=== PATIENT | female | born 1945 | race Hispanic/Latino ===

== ENCOUNTER 2024-11-09 12:59 | Emergency (ER) | payer OTHER ==
[~2024-11-09] VITALS: Ht 149.9 cm; Wt 111.1 kg
--- NOTE | 2024-11-09 15:55 | HMCIMG ---
EXAM: CR right Tibia and fibula, 2 View. CLINICAL HISTORY: fall COMPARISON: None provided. FINDINGS: BONES: No acute fracture or aggressive appearing osseous lesion. JOINTS: No dislocation. SOFT TISSUES: The soft tissues are unremarkable. IMPRESSION: No acute osseous abnormality. /[place]
--- NOTE | 2024-11-09 15:55 | HMCIMG ---
EXAM: CR right Knee, 3 View. CLINICAL HISTORY: fall COMPARISON: None provided. FINDINGS: BONES: No acute fracture or aggressive appearing osseous lesion. JOINTS: There is medial compartment predominant moderate to severe tricompartmental right knee joint osteoarthritis. 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 There is a small suprapatellar knee joint effusion. SOFT TISSUES: The soft tissues are unremarkable. IMPRESSION: 1. No acute osseous injury. 2. Moderate to severe tricompartmental right knee osteoarthritis, predominantly in the medial compartment, with chondrocalcinosis of the lateral meniscus and small suprapatellar joint effusion. /[place]
--- NOTE | 2024-11-09 15:56 | HMCIMG ---
EXAM: CR right ankle, 3 View. CLINICAL HISTORY: fall COMPARISON: None provided. FINDINGS: BONES: No acute fracture or aggressive appearing osseous lesion. Small plantar calcaneal spur. JOINTS: Mild tibiotalar joint osteoarthritis. No dislocation. No radiographic evidence of a joint effusion. SOFT TISSUES: Soft tissue edema more pronounced medially. IMPRESSION: 1. No acute osseous injury. 2. Soft tissue edema, more pronounced medially. /[place]
--- NOTE | 2024-11-09 16:53 | ERN ---
ED Note History of Present Illness Stated Complaint: RIGHT LOWER EXTREMITY PAIN Chief Complaint: Lower Extremity Pain/Injury Time Seen by MD: 13:04 Time Seen by Midlevel: 13:06 Dictation: 79-year-old female coming in via EMS for evaluation of right leg pain. Patient states three days ago she was sitting on the toilet urinating and when she stood up her right leg went out to the right. Patient did not fall to the floor. Did not strike her head. No LOC, no blood thinners. Patient is complaining of pain behind the knee radiating to the lower leg. Patient states he has been slowly walking on it at home. Allergies: Coded Allergies: No Known Allergies (Unverified Allergy, Unknown, 11/09/24) Past Medical History Past Medical History: COPD, Hypertension Surgical History: Hysterectomy Review of System Dictation Constitutional: Negative for fever,chills, and weight loss Eyes: Negative for injury, pain,redness, and discharge ENT: Negative for injury,pain or swelling Cardiovascular: Negative for chest pain, palpitations, and edema Respiratory: Negative for shortness of breath, cough, and wheezing, Abdomen/GI: Negative for abdominal pain, nausea, vomiting, diarrhea, and constipation Back: Negative for injury and pain : Negative for injury, bleeding and discharge MS/Extremity: Right leg pain Skin: Negative for rash, and discoloration Neuro: Negative for headache, weakness, numbness, tingling, and seizure Psych: Negative for suicide ideation, homicidal ideation, and hallucinations Review of Systems: was completed Initial Vital Sign VS Vital Signs Date Time Temp Pulse Resp B/P (MAP) Pulse Ox O2 Delivery O2 Flow Rate FiO2 11/09/24 13:03 97.3 78 19 145/71 95 Nasal Cannula 3.0 11/09/24 15:07 32 Physical Exam Dictation General: awake, alert, NAD Head/Face: Normocephalic, atraumatic Eyes: PERRL, EOMI, vision at baseline ENT: oral cavity clear, TMs clear, no signs of infection Neck: Trachea midline, supple, no nuchal rigidity Cardiovascular: RRR, normal S1/S2, No MRGs, no JVD Respiratory: CTAB, no respiratory distress, No rales or wheezes Abdomen: Soft, non-tender, non-distended, normal bowel sounds, no guarding or rebound. Skin: Warm, dry, normal turgor, no rash MS/Extremity: Pulses equal, no cyanosis, neurovascular intact, FROM, no obvious deformity, no swelling, no redness Neuro: COAx4, GCS 15, strength 5/5, CN 2-12 intact, normal cerebellar exam, normal gait, Psych: Normal behavior, mood, and affect normal ED Course ED Course Orders Procedure Category Date Status Time Knee 3vws Rt RAD 11/09/24 Resulted 13:14 Tibia/Fibula 2vws Rt RAD 11/09/24 Resulted 13:14 Ankle 2vws Rt RAD 11/09/24 Resulted 13:14 Morphine 2mg Syg PHA 11/09/24 Complete (Morphine 2mg Syg) 13:30 Ondansetron 4mg Inj PHA 11/09/24 Complete (Zofran 4mg Inj) 13:30 Femur 2vw Right RAD 11/09/24 Taken 15:21 Apply Mando Wrap (Er) CPOE 11/09/24 Transmitted 16:47 Current Medications Medications (Trade) Dose Ordered Sig/Pauline Route PRN Reason Start Time Stop Time Status Last Admin Dose Admin Morphine Sulfate (morPHINE 2MG SYG) 2 mg ONCE ONCE IVP 11/09/24 13:30 11/09/24 13:31 DC 11/09/24 13:59 Ondansetron HCl (zoFRAN 4MG INJ) 4 mg ONCE ONCE IVP 11/09/24 13:30 11/09/24 13:31 DC 11/09/24 13:58 Vital Signs Date Time Temp Pulse Resp B/P (MAP) Pulse Ox O2 Delivery O2 Flow Rate FiO2 11/09/24 16:54 97.3 83 19 137/84 100 Nasal Cannula* 3 32 11/09/24 15:07 97.5 81 19 148/77 100 Nasal Cannula* 3 32 11/09/24 13:03 97.3 78 19 145/71 95 Nasal Cannula 3.0 Medical Decision Making MDM MDM: 79-year-old female coming in via EMS for evaluation of right leg pain. Patient states three days ago she was sitting on the toilet urinating and when she stood up her right leg went out to the right. Patient did not fall to the floor. Did not strike her head. No LOC, no blood thinners. Patient is complaining of pain behind the knee radiating to the lower leg. Patient states he has been slowly walking on it at home. X-rays of the femur, knee, tib-fib and ankle were done. With no acute findings. Patient will be sent home on an Mando bandage to follow up with PCP for further evaluation as this could be muscle strain and or has a tendon or ligament involvement. Patient educated to take Tylenol [id number] for pain control and to follow up with PCP in 1-2 days. Patient verbalized any commands with the questions. Disposition delay due to that x-ray of the femur not being done on time. Differential diagnosis: Also strain, knee dislocation, tib-fib fracture, hairline fracture, stress fracture Rationale: Tests considered and ordered secondary to shared decision making include: Previous outside records reviewed: Old ER visits. Risk of complication and/or morbidity or mortality of patient management: None Medications-Per medication reconciliation Need for hospitalization: Patient does not meet criteria for hospitalization. Need for emergency major/minor surgery: No There are no social concerns with this patient. Prescription drug management Prescriptions will include symptomatic care Patient's prior external medical records from other ER visits were reviewed by me as indicated. Prior testing and results from previous visits were reviewed. Prior tests were taken into account with medical decision making and resource utilization, independent historian/historians were used to obtain complete medical history. I independently interpreted the test that were performed, results were reviewed by me and considered findings on radiology if ordered. Medical management and examination interpretation discussions were had by me with other qualified healthcare professionals as indicated for the patient's care. DX & DISP Disposition: Discharge Departure Impression: Primary Impression: Muscle strain Condition: Stable Additional Instructions: You can take Tylenol [id number] for pain control. Follow up with your PCP in 1-2 days for further evaluation with the pain continues. Return to the hospital as needed. Referrals: MANISHA YAN M.D. (PCP) Time of Disposition: 16:51 I have reviewed the case, and I agree with, Diagnosis and Plan AVA COLES NP Nov 09, 2024 16:53 ALEJANDRINA HUGHES DO Nov 09, 2024 17:11
[2024-11-09 16:54] VITALS: BP 137/84; PULSE 83; RESP 19; TEMP 97.4; O2SAT 100
--- NOTE | 2024-11-09 17:15 | NUR ---
[facility] CALLED AT THIS TIME FOR TRANSPORT BACK HOME./[place]
--- NOTE | 2024-11-09 18:22 | HMCIMG ---
EXAM: XR Femur, 4 Views. CLINICAL HISTORY: 79 year old female, fall. COMPARISON: None provided. FINDINGS: BONES: No acute fracture or focal osseous lesion. JOINTS: No dislocation. The joint spaces are normal. SOFT TISSUES: The soft tissues are unremarkable. IMPRESSION: 1. No acute osseous abnormality. /[place]
--- NOTE | 2024-11-09 18:35 | NUR ---
PT REFUSED TO WAIT ON TRANSPORT FOR EMS, AT BEDSIDE WITH OXYGEN TO TAKE PT HOME./[place]
== END 2024-11-09 18:36 | disposition home or self-care (01) ==
LOC: EDH 12:59
DX: S86.911A Strain of unspecified muscle(s) and tendon(s) at lower leg level, right leg, initial encounter (principal); J44.9 Chronic obstructive pulmonary disease, unspecified; I10 Essential (primary) hypertension; Z90.710 Acquired absence of both cervix and uterus; X58.XXXA Exposure to other specified factors, initial encounter; Y93.89 Activity, other specified; Y92.89 Other specified places as the place of occurrence of the external cause; Y99.8 Other external cause status
CPT/HCPCS: 99284; 96374; 96375; 73600; 73552; 73562; 73590; J2270; J2405